=== PATIENT | female | born 1990 | race Caucasian/White ===

== ENCOUNTER 2017-06-22 22:31 | Inpatient (IN) | payer BC ==
[~2017-06-22] VITALS: Ht 175.3 cm; Wt 73.5 kg
[2017-06-22 22:48] VITALS: BP 118/74
[2017-06-22] MEDS ORDERED: PRENATAL TABLE1 EAC3 PO (22:57)
[2017-06-22 23:47] LABS: EOSINOPHIL (%) 0.7 % (0-5); EOSINOPHIL COUNT 0.1 K/uL (0-0.3); HEMATOCRIT 38.5 % (36.0-46.0); IMMATURE GRANULOCYTE (%) 1.1 % (0.0-0.7); IMMATURE GRANULOCYTE COUNT 0.1 K/uL; INSTRUMENT ABS NEUTROPHIL CT 8.6 K/uL; LYMPHOCYTE COUNT 1.8 K/uL (1.0-2.8); MCH 30.2 PG (29.0-34.0); MCHC 32.7 G/DL (30.0-36.0); MCV 92.3 FL (83-99); MEAN PLAT.VOLUME 10.8 uM^3 (9.5-12.4); MONOCYTE (%) 6.9 % (3-12); MONOCYTE COUNT 0.8 K/uL (0-0.8); NEUTROPHIL (%) 75.5 % (45-76); NEUTROPHIL COUNT 8.6 K/uL (1.8-6.4); PLATELET COUNT 172 K/uL (156-360); RBC DIS.WIDTH-CV 12.4 % (11.8-14.6); RBC DIS.WIDTH-SD 42.2 % (39-53); RED BLOOD COUNT 4.17 M/uL (3.80-5.20); WHITE BLOOD COUNT 11.4 K/uL (4.1-10.2)
[2017-06-23] VITALS (10 sets, daily range): BP systolic 106–123; BP diastolic 57–73
[2017-06-23] MEDS ORDERED: MOTRIN800 MG PO (04:30)
[2017-06-24 07:25] VITALS: BP 115/67
[2017-06-24 14:54] VITALS: BP 96/55
[2017-06-24 23:02] VITALS: BP 118/67
[2017-06-25 07:42] VITALS: BP 114/74
== END 2017-06-25 16:10 | disposition home or self-care (01) | DRG 775 ==
LOC: LDRP-OP 22:31 → 2WEST 22:33 → LDRP-OP 07-20 13:43
PROVIDERS: Nurse Practitioner
PROC: 10907ZC Drainage of Amniotic Fluid, Therapeutic from Products of Conception, Via Natural or Artificial Opening (ICD-10-PCS; principal; 2017-06-22)
PROC: 0HQ9XZZ Repair Perineum Skin, External Approach (ICD-10-PCS; principal; 2017-06-22)
PROC: 10E0XZZ Delivery of Products of Conception, External Approach (ICD-10-PCS; principal; 2017-06-22)
DX: O70.0 First degree perineal laceration during delivery (principal)
CPT/HCPCS: 82247; 82248; 85025; G0378; J2590